=== PATIENT | female | born 1990 | race American Indian/Alaskan Native ===

== ENCOUNTER 2021-12-11 09:15 | Outpatient (CLI) | payer MEDICAID ==
[2021-12-11 10:42] VITALS: BP 121/81
[2021-12-11] MEDS ORDERED: LACTATED RINGERS 500 ML IV ONE (11:30)
[2021-12-11 12:35] LABS: Bilirubin,Urine Negative (Negative); Blood,Urine Negative (Negative); Color,Urine Yellow (Yellow)
[2021-12-11 12:36] LABS: Protein,Urine <15 mg/dL mg/dL (Negative)
[2021-12-11] MEDS ORDERED: LACTATED RINGERS 1,000 ML IV ONE (14:36)
[2021-12-11 15:08] LABS: Bacteria,Urine 4+ /HPF (Negative)
[2021-12-11 16:33] LABS: Basophils % (Auto) 0.1 % (0.0-1.8); Eosinophils % (Auto) 0.3 % (0.0-4.3); Hematocrit 29.8 % (30.3-42.9); Hemoglobin 10.2 gm/dl (10.1-14.3); Lymphocytes # (Auto) 2.1 K/mm3 (1.2-5.4); Lymphocytes % (Auto) 16.8 % (13.4-35.0); Mean Corpuscular HGB Conc 34 % (30-34); Mean Corpuscular Volume 85 fl (79-97); Monocytes # (Auto) 0.5 K/mm3 (0.0-0.8); Monocytes % (Auto) 4.3 % (0.0-7.3); Platelet Count 256 K/mm3 (140-440); Red Blood Count 3.49 M/mm3 (3.65-5.03)
[2021-12-11 16:49] LABS: Alanine Aminotransferase 11 units/L (7-56); Albumin 3.5 g/dL (3.9-5); Blood Urea Nitrogen 4 mg/dL (7-17); Hemolysis Index 0
[2021-12-11 17:07] LABS: BUN/Creatinine Ratio 10
== END 2021-12-11 19:08 | disposition home or self-care (01) ==
LOC: TRG 09:15 → APU 09:17 → TRG 19:08
PROVIDERS: ATTEND Obstetrics & Gynecology
DX: O26.892 Other specified pregnancy related conditions, second trimester (principal); R10.9 Unspecified abdominal pain; Z3A.27 27 weeks gestation of pregnancy
CPT/HCPCS: 36415; 59025; 80053; 81001; 85025

== ENCOUNTER 2022-01-11 16:18 | Outpatient (CLI) | payer MEDICAID ==
[2022-01-11 16:51] VITALS: BP 118/76
[2022-01-11] MEDS ORDERED: LACTATED RINGERS 500 ML IV ONE ×2 (17:24→18:41)
[2022-01-11] MEDS ORDERED: TERBUTALINE 1 MG/1 ML INJ SUB-Q ONE (18:39)
[2022-01-11] MEDS ORDERED: TERBUTALINE 1 MG/1 ML INJ ONE (18:40)
[2022-01-11] MEDS ORDERED: FAMOTIDINE 20 MG/2 ML INJ IV SCH (19:00)
[2022-01-11] MEDS: TERBUTALINE 1 MG/1 ML INJ SUB-Q SCH ×3 (20:37→21:47)
[2022-01-11 22:15] LABS: Bacteria,Urine 1+ /HPF (Negative)
[2022-01-11 22:17] LABS: Color,Urine Yellow (Yellow)
== END 2022-01-11 23:24 | disposition home or self-care (01) ==
LOC: TRG 16:18 → APU 16:19 → TRG 23:24
PROVIDERS: ATTEND Obstetrics & Gynecology
DX: O26.893 Other specified pregnancy related conditions, third trimester (principal); K92.0 Hematemesis; R12 Heartburn; Z3A.32 32 weeks gestation of pregnancy
CPT/HCPCS: 81001; 96365; 96366; 96372; J3105; J3490; J7120